=== PATIENT | male | born 1990 | race Caucasian/White ===

== ENCOUNTER 2019-10-24 19:03 | Emergency (ER) | payer OTHER ==
[~2019-10-24] VITALS: Ht 180.3 cm; Wt 74.8 kg
[2019-10-24 19:10] VITALS: BP 166/120
[2019-10-24 20:24] VITALS: BP 147/69
== END 2019-10-24 21:10 | disposition home or self-care (01) ==
LOC: MED 19:03
DX: S01.431A Puncture wound without foreign body of right cheek and temporomandibular area, initial encounter (principal); M79.641 Pain in right hand; V49.49XA Driver injured in collision with other motor vehicles in traffic accident, initial encounter; Y93.89 Activity, other specified; Y92.89 Other specified places as the place of occurrence of the external cause; Y99.8 Other external cause status
CPT/HCPCS: 70450; 72125; 90715; 99285